=== PATIENT | male | born 1945 | race Caucasian/White ===

== ENCOUNTER 2017-02-07 09:05 | Inpatient (IN) | payer MEDICARE, BC ==
[~2017-02-07] VITALS: Ht 190.5 cm; Wt 126.6 kg
[~2017-02-07 09:05] MED LIST: ALFU10TA10 PO; ASPI81TA2 PO; ATOR40TA PO; BUPR-96 PO; CYAN500T4 PO; FINA5TAB11 PO; LISI10TA5 PO; METO-302 PO; SERT50TA PO; TIOT18CA3 IH
--- NOTE | 2017-02-07 09:13 | NUR ---
Presents self to ed due to chest pain, 06/09, sharp and non radiating x 8 days with sob x 2 days, hx of double bipass. Patient is aao3. Appears in no acute distress, respiration even and unlabored. Skin is warm to touch and non diaphoretic. Afebrile. Gowned patient and placed on tele monitor. VSs. will cont to monitor
--- NOTE | 2017-02-07 09:17 | NUR ---
laboratory technician at
[2017-02-07] MEDS ORDERED: ASPIRIN 325 MG TABLET ONE (09:18)
[2017-02-07 09:26] LABS: BASOPHILS % (AUTO) 0.1 % (0.0-2.0); EOSINOPHILS % (AUTO) 0.3 % (0.0-6.0); HEMATOCRIT 37 % (39-51); LYMPHOCYTES # (AUTO) 1.4 /CMM (0.8-4.8); MEAN CORPUSCULAR HEMOGLOBIN 26 PG (26.0-33.0); MEAN CORPUSCULAR HGB CONC 32 g/dl (31.0-36.0); MEAN CORPUSCULAR VOLUME 80 fL (80-96); MONOCYTES # (AUTO) 1.4 /CMM (0.1-1.30); MONOCYTES % (AUTO) 10.7 % (2.0-12.0); NEUTROPHILS # (AUTO) 9.8 /CMM (1.8-8.9); NEUTROPHILS % (AUTO) 77.9 % (43.0-81.0); PLATELET COUNT (AUTO) 284 /CMM (150-450); RED BLOOD CELL COUNT(AUTO) 4.67 MIL/uL (4.5-6.0); WHITE BLOOD COUNT (AUTO) 12.6 K/uL (4.3-11.0)
[2017-02-07] MEDS ORDERED: ASPIRIN 325 MG TABLET PO ONE (09:30)
[2017-02-07 09:38] LABS: CALCIUM, SERUM 10.1 mg/dL (8.5-10.1); CARBON DIOXIDE 27 mmol/L (21-32); CHLORIDE 101 mmol/L (98-107); CREATININE 1.1 mg/dL (0.6-1.3); GLUCOSE 113 mg/dL (74-106); POTASSIUM 4.3 mmol/L (3.5-5.1); SODIUM SERUM 135 mmol/L (136-145); UREA NITROGEN, BLOOD 17 mg/dL (7-18)
--- NOTE | 2017-02-07 09:39 | NUR ---
HOTEL LOBBY CONCIERGE AT BEDSIDE
[2017-02-07 09:45] LABS: TROPONIN I < 0.017 ng/mL (0.00-0.056)
[2017-02-07] MEDS ORDERED: BUPR-96 PO (09:45)
[2017-02-07] MEDS ORDERED: METO-304 PO (09:45)
[2017-02-07] MEDS ORDERED: ATOR80TA PO (09:45)
[2017-02-07] MEDS ORDERED: COLC0.6T69 PO (09:46)
[2017-02-07] MEDS ORDERED: NAPR500T3 PO (09:46)
[2017-02-07 09:48] LABS: PROTHROMBIN TIME 10.7 SECS (9.5-12.7)
--- NOTE | 2017-02-07 09:48 | NUR ---
Medicated patient as ordered
[2017-02-07 09:51] LABS: ALANINE AMINOTRANSFERASE 19 U/L (12-78); ALBUMIN 3.1 g/dL (3.4-5.0); ALKALINE PHOSPHATASE 104 U/L (46-116); ASPARTATE AMINOTRANSFERASE 20 U/L (15-37); B-TYPE NATRIURETIC PEPTIDE 924 PG/ML (0-125); BILIRUBIN,DIRECT 0.1 mg/dL (0.0-0.2); BILIRUBIN,TOTAL 0.7 mg/dL (0.2-1.0); TOTAL PROTEIN, SERUM 8.2 g/dL (6.4-8.2)
[2017-02-07] MEDS ORDERED: FUROSEMIDE 20 MG/2 ML VIAL ONE (09:58)
[2017-02-07] MEDS ORDERED: FUROSEMIDE 20 MG/2 ML VIAL IV ONE (10:00)
--- NOTE | 2017-02-07 10:00 | NUR ---
panel on-call paged
--- NOTE | 2017-02-07 10:00 | NUR ---
called [facility] [phone] its kan
--- NOTE | 2017-02-07 10:41 | NUR ---
REPORT GIVEN TO NEMO LOMAX FOR TELE RM [id number]
--- NOTE | 2017-02-07 10:52 | NUR ---
Patient transported. vss
--- NOTE | 2017-02-07 11:23 | NUR ---
TELE/RN ADMITTING NOTES PATIENT ADMITTED TO UNIT VIA GURNEY ACCOMPANIED BY ER NURSE. ALERT AND ORIENTED X4. VERBALIZED MILD SOB ON EXERTION. 02 VIA N/C @ 2 LPM ADMINISTERED WITH RELIEF. PATIENT WITH DIAGNOSIS OF CHEST PAIN WITH SOB. ALSO WITH SIGNIFICANT DIAGNOSIS OF HTN, COPD, CABG, BPH, SPINAL SURGERY B/L HERNIA. ROUTINE ADMISSION DONE: WITH IV ACCESS ON RIGHT AC G# 20. SKIN ASSESSMENT DONE , SKIN IS INTACT WITH DISCOLORATION ON BOTH FOREARMS, PHOTOS TAKEN AND FILED. PATIENT ON TELE-MONITORING WITH READING OF V-PACING AND HR OF 70-80 ON ADMISSION. CALL LIGHT WITHIN REACH, BED LOW AND LOCK FOR SAFETY. MD MADE AWARE OF ADMISSION AND PUT ORDERS IN. WILL CONTINUE TO ASSESS AND MONITOR PATIENT ACCORDINGLY.
[2017-02-07] MEDS: CYANOCOBALAMIN 500 MCG TABLET PO SCH ×2 (12:00→17:20)
[2017-02-07] MEDS ORDERED: COLCHICINE 0.6 MG TABLET PO PRN (12:00)
[2017-02-07] MEDS ORDERED: ONDANSETRON HCL/PF 4 MG/2 ML VIAL IVP PRN (12:30)
[2017-02-07] MEDS ORDERED: ACETAMINOPHEN 325 MG TABLET PO PRN (12:30)
[2017-02-07] MEDS: IPRATROPIUM NEB FS 0.5 MG/2.5 ML AMPUL.NEB NEB SCH ×3 (12:30→20:05)
[2017-02-07] MEDS ORDERED: Z GUARD REMEDY 2 OZ OINT TP PRN (12:30)
[2017-02-07] MEDS ORDERED: IPRATROPIUM NEB FS 0.5 MG/2.5 ML AMPUL.NEB NEB PRN (12:30)
[2017-02-07] MEDS: PANTOPRAZOLE 40 MG TABLET.DR PO SCH (12:44)
[2017-02-07] MEDS: BUMETANIDE INJ 0.25 MG/ML VIAL IV SCH (12:45)
[2017-02-07] MEDS: METOPROLOL SUCCINATE 50 MG TAB.SR.24H PO SCH (12:47)
--- NOTE | 2017-02-07 13:29 | NUR ---
EKG reported to nurse(Ignacio Lamb)
--- NOTE | 2017-02-07 13:31 | NUR ---
Was notified of respiratory treatment at this time.
--- NOTE | 2017-02-07 14:10 | NUR ---
RN NOTES PATIENT VISITED AND BROUGHT NON-FORMULARY HOME MEDS ALFUZOSIN HCL 10MG AND WELLBUTRIN 300MG. IT WAS COUNTED AND BROUGHT TO PHARMACY ACCEPTED BY
--- NOTE | 2017-02-07 14:22 | NUR ---
RN NOTES SPOKED TO PATIENT TO ASK HIS TO BRING HIS HOME MEDICATION ALFUZOSIN HCL 10MG WHEN SHE COMES TO VISIT HIM. HE SAID HE WILL. WILL FOLLOW-UP.
[2017-02-07] MEDS: HYDROCODONE/APAP 5/325MG 1 EACH TABLET PO PRN ×2 (15:31→20:57)
[2017-02-07 16:00] VITALS: BP 100/57
[2017-02-07] MEDS: BUPROPION XL 150 MG TAB.ER.24 PO SCH (17:20)
--- NOTE | 2017-02-07 19:30 | NUR ---
JANITOR CARETAKER INITIAL NOTE RECEIVED PT AWAKE AND ALERT ORIENTED X4, COMPLAINT OF PAIN ON BACK, CURRENTLY RECEIVING NORCO 5/325MG TO MANAGE PAIN, WILL PROVIDE TO PATIENT WHEN AVAILABLE, ASKED PT IF HE WOULD LIKE ANYTHING DIFFERENT FOR PAIN, HE WOULD LIKE TO CONTINUE WITH NORCO 5/325MG, PT IS CLEAN/DRY AND COMFORTABLE, SAFETY MEASURES WILL BE MAINTAINED AT ALL TIMES, WILL MONITOR AND ATTEND TO NEEDS HOURLY AND NEEDED
[2017-02-07 20:00] VITALS: BP 126/77
[2017-02-07] MEDS: FINASTERIDE (5 MG) 5 MG TABLET PO SCH (20:57)
[2017-02-07] MEDS: LISINOPRIL (10MG) 10 MG TABLET PO SCH (20:58)
[2017-02-07] MEDS ORDERED: ZOLPIDEM TARTRATE 5 MG TABLET PO PRN (22:00)
[2017-02-08] VITALS (7 sets, daily range): BP systolic 94–105; BP diastolic 55–66
[2017-02-08] MEDS: HYDROCODONE/APAP 5/325MG 1 EACH TABLET PO PRN ×3 (00:55→19:52)
[2017-02-08] MEDS: IPRATROPIUM NEB FS 0.5 MG/2.5 ML AMPUL.NEB NEB SCH ×4 (01:52→20:33)
--- NOTE | 2017-02-08 06:19 | NUR ---
DAMAGED FREIGHT INSPECTOR CLOSING NOTE PT REMAINED STABLE DURING RADIOLOGY NURSE, NO SIGNIFICANT CHANGES NOTED, PAIN SUCCESSFULLY TREATED WITH CURRENT PAIN MEDICATION, CLEAN/DRY AND COMFORTABLE, SAFETY MEASURES WERE KEPT IN PLACE AT ALL TIMES, NEEDS ANTICIPATED AND ATTENDED TO, WILL ENDORSE TO INCOMING NURSE FOR CONTINUITY OF CARE.
[2017-02-08] MEDS: PANTOPRAZOLE 40 MG TABLET.DR PO SCH (07:01)
--- NOTE | 2017-02-08 07:30 | NUR ---
PLANING MACHINE OPERATOR AM NOTE PT IN BED, AWAKE AND ALERT ORIENTED X4, ON 2L O2, ON AND OFF, NAD, NO SOB, RESPIRATION UNLABORED, TELEMETRY READS V PACING HR 78 , DENIES ANY CHEST PAIN OR DISCOMFORT AT THIS TIME, LEFT AC G20 IVHL FLUSHES WELL, SITE CLEAR, AMB WITH ASSIST, CARDIAC DIET, DISCUSSED PLAN OF CARE, VERBALIZED UNDERSTANDING, SAFETY MEASURES IN PLACE. CALL LIGHT WITHIN REACH, WILL CONT TO MONITOR.
[2017-02-08 07:51] LABS: BASOPHILS % (AUTO) 0.1 % (0.0-2.0); EOSINOPHILS % (AUTO) 0.4 % (0.0-6.0); HEMATOCRIT 34 % (39-51); HEMOGLOBIN 11.3 g/dL (13.5-17.5); LYMPHOCYTES # (AUTO) 1.5 /CMM (0.8-4.8); LYMPHOCYTES % (AUTO) 13.3 % (20.0-44.0); MEAN CORPUSCULAR HEMOGLOBIN 27 PG (26.0-33.0); MEAN CORPUSCULAR HGB CONC 33 g/dl (31.0-36.0); MEAN CORPUSCULAR VOLUME 81 fL (80-96); MONOCYTES # (AUTO) 1.3 /CMM (0.1-1.30); MONOCYTES % (AUTO) 11.9 % (2.0-12.0); NEUTROPHILS # (AUTO) 8.4 /CMM (1.8-8.9); NEUTROPHILS % (AUTO) 74.3 % (43.0-81.0); PLATELET COUNT (AUTO) 272 /CMM (150-450); RDW COEFFICIENT OF VARIATION 18.2 (11.5-15.0); WHITE BLOOD COUNT (AUTO) 11.3 K/uL (4.3-11.0)
[2017-02-08 07:58] LABS: ALBUMIN 2.7 g/dL (3.4-5.0); BILIRUBIN,TOTAL 0.6 mg/dL (0.2-1.0); CALCIUM, SERUM 9.4 mg/dL (8.5-10.1); MAGNESIUM 2.2 mg/dL (1.8-2.4); PHOSPHORUS 3.6 mg/dL (2.5-4.9); POTASSIUM 4.4 mmol/L (3.5-5.1); TOTAL PROTEIN, SERUM 7.4 g/dL (6.4-8.2)
[2017-02-08] MEDS: ASPIRIN 81 MG TAB.CHEW PO SCH (08:31)
[2017-02-08] MEDS: BUPROPION XL 150 MG TAB.ER.24 PO SCH ×2 (08:31→16:14)
[2017-02-08] MEDS: CYANOCOBALAMIN 500 MCG TABLET PO SCH ×2 (08:31→16:14)
[2017-02-08] MEDS: METOPROLOL SUCCINATE 50 MG TAB.SR.24H PO SCH (08:31)
[2017-02-08] MEDS: BUMETANIDE INJ 0.25 MG/ML VIAL IV SCH (08:32)
--- NOTE | 2017-02-08 09:30 | NUR ---
COOLING TOWER TECHNICIAN NOTES ADMINISTERED DUE MEDS.
[2017-02-08] MEDS: NAPROXEN 500 MG TABLET PO PRN (10:49)
[2017-02-08] MEDS ORDERED: AZITHROMYCIN 250 MG TABLET PO ONE (14:00)
[2017-02-08] MEDS: LIDOCAINE 5% (PATCH) 1 EA PATCH TP SCH (16:15)
[2017-02-08] MEDS: ALFUZOSIN HCL 10 MG PO SCH ×2 (17:49→21:16)
--- NOTE | 2017-02-08 18:29 | NUR ---
MS RN CLOSING NOTES PT RESTING IN BED, AWAKE AND ALERT ORIENTED X4, FAMILY AT BEDSIDE, ON 2L O2, ON AND OFF, NAD, NO SOB, RESPIRATION UNLABORED, DENIES ANY CHEST PAIN OR DISCOMFORT AT THIS TIME, LEFT AC G20 IVHL FLUSHES WELL, SITE CLEAR, AMB WITH ASSIST, CARDIAC DIET, ALL NEEDS MET AT THIS TIME, SAFETY MEASURES IN PLACE. CALL LIGHT WITHIN REACH, WILL ENDORSE TO NEXT SHIFT FOR SURYA.
--- NOTE | 2017-02-08 19:30 | NUR ---
MS RN INITIAL NOTE RECEIVED PT AWAKE AND ALERT, ORIENTED X4, AMBULATING WITH ASSISTANCE, PAIN LEVEL REPORTED OF 8/10 ON HIS LOWER BACK DURING PHYSICAL ASSESSMENT, WILL PROVIDE MEDICATION ORDERED, RESPIRATIONS ARE EVEN AND UNLABORED, PT IS COOPERATIVE WITH CARE, CLEAN/DRY AND COMFORTABLE, SAFETY MEASURES WILL BE MAINTAINED AT ALL TIMES, NEEDS WILL BE ANTICIPATED AND ATTENDED TO DURING HOURLY ROUNDS AND NEEDED.
[2017-02-08] MEDS: LISINOPRIL (10MG) 10 MG TABLET PO SCH (21:09)
[2017-02-08] MEDS: FINASTERIDE (5 MG) 5 MG TABLET PO SCH (21:16)
[2017-02-08] MEDS: ATORVASTATIN 40 MG TABLET PO SCH (21:16)
[2017-02-09] MEDS: HYDROCODONE/APAP 5/325MG 1 EACH TABLET PO PRN ×3 (00:11→21:32)
[2017-02-09] MEDS: IPRATROPIUM NEB FS 0.5 MG/2.5 ML AMPUL.NEB NEB SCH ×4 (01:02→20:08)
--- NOTE | 2017-02-09 06:08 | NUR ---
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
[2017-02-09] MEDS: PANTOPRAZOLE 40 MG TABLET.DR PO SCH (06:37)
--- NOTE | 2017-02-09 07:30 | NUR ---
MS RN AM NOTE PT IN BED, AWAKE AND ALERT ORIENTED X4, ON 2L O2, ON AND OFF, NAD, NO SOB, RESPIRATION UNLABORED, DENIES ANY CHEST PAIN, C/O LOWER BACK PAIN 02/07, WILL CONTINUE WITH PAIN MANAGEMENT ORDERED, LEFT AC G20 IVHL FLUSHES WELL, SITE CLEAR, AMB WITH ASSIST, CARDIAC DIET, DISCUSSED PLAN OF CARE, VERBALIZED UNDERSTANDING, SAFETY MEASURES IN PLACE. CALL LIGHT WITHIN REACH, WILL CONT TO MONITOR.
[2017-02-09 08:00] VITALS: BP 99/59
[2017-02-09] MEDS: AZITHROMYCIN 250 MG TABLET PO SCH (08:58)
[2017-02-09] MEDS: ASPIRIN 81 MG TAB.CHEW PO SCH (08:58)
[2017-02-09] MEDS: CYANOCOBALAMIN 500 MCG TABLET PO SCH ×2 (08:58→16:19)
[2017-02-09] MEDS: METOPROLOL SUCCINATE 50 MG TAB.SR.24H PO SCH (08:59)
[2017-02-09] MEDS: BUPROPION XL 150 MG TAB.ER.24 PO SCH (08:59)
[2017-02-09] MEDS: BUMETANIDE INJ 0.25 MG/ML VIAL IV SCH (08:59)
--- NOTE | 2017-02-09 09:30 | NUR ---
MS RN NOTES ADMINISTERED DUE MEDS.
[2017-02-09] MEDS: NAPROXEN 500 MG TABLET PO PRN (09:38)
--- NOTE | 2017-02-09 10:26 | NUR ---
MS RN NOTES SEEN BY PT EARLIER. OOB WALKING WITH WALKER.
[2017-02-09] MEDS: LIDOCAINE 5% (PATCH) 1 EA PATCH TP SCH (15:27)
[2017-02-09] MEDS: MAGNESIUM HYDROXIDE 30 ML UDC PO PRN ×2 (15:35→20:34)
[2017-02-09 16:00] VITALS: BP 112/66
[2017-02-09 18:01] VITALS: BP 112/66
--- NOTE | 2017-02-09 19:23 | NUR ---
MS RN CLOSING NOTES PT RESTING IN BED, AWAKE AND ALERT ORIENTED X4, ON 2L O2, ON AND OFF, NAD, NO SOB, RESPIRATION UNLABORED, DENIES ANY CHEST PAIN, PT C/O NAUSEA AND WAS GIVEN ZOFRAN 4 MG IV A WHILE AGO. LEFT AC G20 IVHL FLUSHES WELL, SITE CLEAR, AMB WITH ASSIST, CARDIAC DIET, ALL NEEDS MET AT THIS TIME, SAFETY MEASURES IN PLACE. CALL LIGHT WITHIN REACH, WILL ENDORSE TO NEXT SHIFT FOR SURYA.
--- NOTE | 2017-02-09 19:30 | NUR ---
MS RN OPENING NOTES: RECEIVED PATIENT IN BED AWAKE AND LYING DOWN. A/OX4. L AC 20G IV PATENT AND INTACT. PT ON NC 2LPM AND TOLERATED WELL. PT KEPT CLEAN, DRY, AND COMFORTABLE. CALL LIGHT WITHIN PATIENT REACH. BED IN LOCKED, LOWEST POSITION, AND SIDE RAILS UP X2. WILL CONTINUE TO MONITOR.
[2017-02-09 20:00] VITALS: BP 100/62
--- NOTE | 2017-02-09 20:54 | NUR ---
MS RN NOTES: PATIENT REQUESTED FOR LAXATIVE FOR CONSTIPATION. MILK OF MAGNESIA WAS GIVEN TO PT. WILL CONTINUE TO MONITOR.
[2017-02-09] MEDS: ATORVASTATIN 40 MG TABLET PO SCH (21:30)
[2017-02-09] MEDS: FINASTERIDE (5 MG) 5 MG TABLET PO SCH (21:30)
[2017-02-09] MEDS: ALFUZOSIN HCL 10 MG PO SCH (21:30)
[2017-02-09] MEDS: LISINOPRIL (10MG) 10 MG TABLET PO SCH (21:31)
--- NOTE | 2017-02-09 21:32 | NUR ---
MS RN NOTES: PATIENT COMPLAINED OF LOWER BACK PAIN. PATIENT GOT NORCO 5/325MG PO. VITAL SIGNS STABLE.
[2017-02-10] MEDS: IPRATROPIUM NEB FS 0.5 MG/2.5 ML AMPUL.NEB NEB SCH ×4 (00:59→20:08)
[2017-02-10] MEDS: HYDROCODONE/APAP 5/325MG 1 EACH TABLET PO PRN ×2 (02:58→15:12)
--- NOTE | 2017-02-10 02:58 | NUR ---
MS RN NOTES: PT RECEIVED NORCO 5/325MG. PT COMPLAINED OF 7/10 LOWER BACK PAIN. WILL CONTINUE TO MONITOR.
[2017-02-10] MEDS: NAPROXEN 500 MG TABLET PO PRN ×3 (06:27→22:54)
[2017-02-10] MEDS: PANTOPRAZOLE 40 MG TABLET.DR PO SCH (06:27)
--- NOTE | 2017-02-10 06:47 | NUR ---
MS RN CLOSING NOTES: PT A/OX4. PT ON NC 2LPM AND TOLERATED WELL. PT IS SITTING DOWN IN CHAIR. PT RECEIVED NAPROXEN AT 0627. COMPLAINED OF LOWER BACK PAIN 4-5/10. ALL NEEDS WERE ATTENDED TO. CALL LIGHT WITHIN PT REACH. BED IN LOCKED, LOWEST POSITION, AND SIDE RAILS X2 UP. L AC#20 IV PATENT AND INTACT. PT KEPT CLEAN, DRY, AND COMFORTABLE. WILL ENDORSE TO DAY SHIFT NURSE.
[2017-02-10 08:00] VITALS: BP 71/43
--- NOTE | 2017-02-10 08:45 | NUR ---
RN AM NOTES RECEIVED PATIENT IN STABLE CONDITION, TALKING, ALERT AND ORIENTED X4. COMPLAINTS OF SOB AND INABILITY TO AMBULATE TO BATHROOM WITHOUT ASSISTANCE. BP LOW AT 71/43, P 91; MD AWARE. BP INCREASED TO 80/64 P59, TAKEN MANUALLY, MD AWARE. WILL CONTINUE TO MONITOR. HOLDING BP MEDS THIS MORNING.
[2017-02-10] MEDS: METOPROLOL SUCCINATE 50 MG TAB.SR.24H PO SCH (08:57)
[2017-02-10] MEDS: ASPIRIN 81 MG TAB.CHEW PO SCH (09:42)
[2017-02-10] MEDS: BUPROPION XL 150 MG TAB.ER.24 PO SCH (09:42)
[2017-02-10] MEDS: CYANOCOBALAMIN 500 MCG TABLET PO SCH ×2 (09:42→16:25)
[2017-02-10] MEDS: AZITHROMYCIN 250 MG TABLET PO SCH (09:42)
[2017-02-10] MEDS ORDERED: BISACODYL SUPP (10 MG) 10 MG/SUPP.RECT SUPP.RECT RC PRN (14:00)
[2017-02-10] MEDS ORDERED: POLYETHYLENE GLYCOL 3350 17 GM POWD.PACK PO PRN (14:00)
--- NOTE | 2017-02-10 14:43 | NUR ---
AT BEDSIDE REQUESTING TO SPEAK TO MD. LEFT MESSAGE FOR MD TO CALL HER THIS AFTERNOON AT . HE CAN ALSO REACH HER HERE AT PATIENT'S BEDSIDE WITHIN THE HOUR. LEFT MESSAGE WITH [employer]. AWARE. WAITING FOR RESPONSE.
[2017-02-10] MEDS: LIDOCAINE 5% (PATCH) 1 EA PATCH TP SCH (15:30)
[2017-02-10 16:00] VITALS: BP 91/51
[2017-02-10] MEDS: MAG HYDROX/AL HYDROX/SIMETH 30 ML UDC PO PRN ×2 (16:20→21:34)
--- NOTE | 2017-02-10 19:03 | NUR ---
PATIENT RESTING COMFORTABLY IN BED, AWAKE, ALERT AND ORIENTED. SMALL BOWEL MOVEMENT X2, PLEASE CONTINUE WITH BOWEL REGIMEN ORDERED, WILL ENDORSE TO NEXT SHIFT. PACEMAKER RESET TODAY, TO FOLLOW UP WITH NUTRITION FACULTY MEMBER IN MORNING RE: DISCHARGE. TO ASK MD TO D/C LIDOCAINE PATCH PT. NO LONGER WANTS TO TAKE IT. WILL ENDORSE TO NEXT SHIFT.
[2017-02-10 20:00] VITALS: BP 104/62
--- NOTE | 2017-02-10 20:41 | NUR ---
MS RN OPENING NOTES: RECEIVED PATIENT AWAKE. PT A/O X4. PT WAS UP AND ASSISTED TO BATHROOM. IV ON L AC #20 SALINE LOCK. KEPT CLEAN, DRY, AND COMFORTABLE. BED IN LOWEST, LOCKED POSITION, AND SIDE RAILS X2 UP. WILL CONTINUE TO MONITOR PT.
[2017-02-10] MEDS: ATORVASTATIN 40 MG TABLET PO SCH (21:34)
[2017-02-10] MEDS: FINASTERIDE (5 MG) 5 MG TABLET PO SCH (21:34)
[2017-02-10] MEDS: ALFUZOSIN HCL 10 MG PO SCH (21:35)
[2017-02-10] MEDS: LISINOPRIL (10MG) 10 MG TABLET PO SCH (21:35)
--- NOTE | 2017-02-10 21:48 | NUR ---
MR RN NOTES: PATIENT COMPLAINED OF BELCHING AND BLOATING. PATIENT WAS GIVEN MAALOX 30ML. PT'S BP WAS 89/59 HR77. PRINVIL 10MG WAS HELD. WILL CONTINUE TO MONITOR PT.
[2017-02-11] MEDS: IPRATROPIUM NEB FS 0.5 MG/2.5 ML AMPUL.NEB NEB SCH ×3 (01:21→13:17)
[2017-02-11 05:47] VITALS: BP 104/62
--- NOTE | 2017-02-11 06:29 | NUR ---
MS RN CLOSING NOTES: PATIENT A/OX4. PT IN BED LAYING DOWN AND REPORTED HE SLEPT BETTER. PT'S URINAL WAS EMPTIED OUT AT 400ML AND PT REPORTED HE HAD 3 BOWEL MOVEMENTS. PT KEPT IN LOCKED, LOWEST POSITION, AND SIDE RAILS X2 UP. PT'S CALL LIGHT WITHIN PT REACH. ALL NEEDS WERE ATTENDED TO. PT KEPT CLEAN, DRY, AND COMFORTABLE. PT HAS IV ON L AC #22. WILL ENDORSE TO DAY SHIFT NURSE.
--- NOTE | 2017-02-11 07:58 | NUR ---
RN AM NOTES RECEIVED PATIENT UP IN CHAIR AWAKE, TALKING ON THE PHONE TO . ALERT AND ORIENTED X 4. PAIN RATED 4/10. WILL ADMINISTER PAIN MEDICATION ORDERED. ABLE TO TRANSFER WITH ASSISTANCE FROM BED TO CHAIR. WAITING FOR BREAKFAST. WILL CONTINUE TO MONITOR.
[2017-02-11 08:00] VITALS: BP 92/55
[2017-02-11] MEDS: CYANOCOBALAMIN 500 MCG TABLET PO SCH ×2 (08:38→17:26)
[2017-02-11] MEDS: NAPROXEN 500 MG TABLET PO PRN (08:38)
[2017-02-11] MEDS: ASPIRIN 81 MG TAB.CHEW PO SCH (08:38)
[2017-02-11] MEDS: AZITHROMYCIN 250 MG TABLET PO SCH (08:38)
[2017-02-11] MEDS: PANTOPRAZOLE 40 MG TABLET.DR PO SCH (08:39)
[2017-02-11] MEDS: METOPROLOL SUCCINATE 50 MG TAB.SR.24H PO SCH (08:39)
[2017-02-11] MEDS: BUPROPION XL 150 MG TAB.ER.24 PO SCH (08:39)
--- NOTE | 2017-02-11 13:18 | NUR ---
CALLED TO BEDSIDE FOR COMPLAINTS OF RIGHT SHOULDER PAIN RADIATING DOWN TO RIGHT SIDE OF RIBCAGE. RELIEVED WITH REPOSITIONING. REQUESTED TO BE TESTED TO RULE OUT PLEURISY, CALLED MD AND MD HAS ALREADY TESTED FOR THAT AND PATIENT IS RECEIVING MEDS FOR IT. FOLLOWED UP WITH CASE MANAGEMENT FOR DISCHARGE TO SNF OR [facility]. ORDER FOR EVALUATION PUT IN THIS MORNING. PT VERBALIZED UNDERSTANDING. WILL CONTINUE TO MONITOR.
[2017-02-11] MEDS: LIDOCAINE 5% (PATCH) 1 EA PATCH TP SCH (15:30)
[2017-02-11 16:00] VITALS: BP 94/62
--- NOTE | 2017-02-11 18:40 | NUR ---
RN PM NOTES PATIENT TO DISCHARGE TO [facility] AT 7:30 PM. ALL NEEDS MET, DISCHARGE PAPERWORK SIGNED. WILL ENDORSE TO NEXT SHIFT TO COMPLETE DISCHARGE NOTE AND COMPLETION OF CAREPLANS. PATIENT IN STABLE CONDITION. NO SOB, DISTRESS OR PAIN NOTED.
--- NOTE | 2017-02-11 20:24 | NUR ---
MS/RN NOTES RECEIVED PT. LYING IN BED. BREATHING EVEN AND UNLABORED ON ROOM AIR. NO SOB, RESPIRATORY DISTRESS OR COMPLAINTS OF PAIN NOTED AT THIS TIME. PER DAYSHIFT RN [place] PT. IS TO BE DISCHARGED TODAY TO [facility]. PER DAYSHIFT RN REPORT WAS GIVEN TO ERENDIRA AT [facility], PT. EXITCARE IS COMPLETE, SIGNED COPY PROVIDED TO PATIENT, ORIGINAL PLACED IN PT. CHART. PICTURES TAKEN AND PLACED IN CHART. PT. VITAL SIGNS STABLE. BELONGINGS LIST COMPLETED, SIGNED AND PLACED IN CHART. PT. CARE PLANS COMPLETED. PT. IV REMOVED. NO BLEEDING OR S/S OF INFECTION NOTED AT IV SITE. PT. LEFT THE FLOOR VIA GURNEY ACCOMPANIED BY PULMONARY FUNCTION TECHNICIAN AT 2023.
== END 2017-02-11 20:20 | DRG 302 ==
LOC: EDUNIT# 09:05 → ER 09:06 → TELE 10:22 → MED 02-08 14:38
PROVIDERS: ADMIT Internal Medicine; ATTEND Internal Medicine
DX: I25.110 Atherosclerotic heart disease of native coronary artery with unstable angina pectoris (principal); I50.33 Acute on chronic diastolic (congestive) heart failure; J44.0 Chronic obstructive pulmonary disease with (acute) lower respiratory infection; I11.0 Hypertensive heart disease with heart failure; E78.5 Hyperlipidemia, unspecified; N40.0 Benign prostatic hyperplasia without lower urinary tract symptoms; Z95.1 Presence of aortocoronary bypass graft; J20.9 Acute bronchitis, unspecified; I27.2 Other secondary pulmonary hypertension; G47.33 Obstructive sleep apnea (adult) (pediatric); F41.0 Panic disorder [episodic paroxysmal anxiety]; I25.5 Ischemic cardiomyopathy; Z96.652 Presence of left artificial knee joint; Z95.810 Presence of automatic (implantable) cardiac defibrillator; Z87.891 Personal history of nicotine dependence; I71.4 Abdominal aortic aneurysm, without rupture; Z79.82 Long term (current) use of aspirin
CPT/HCPCS: 36415; 71010-TC; 80048-TC; 80053-TC; 80061-TC; 80076-TC; 83735-TC; 83880; 84100-TC; 84484-TC; 85025-TC; 85730-TC; 87081-TC; 93307-TC; 94799-TC; 97001-TC; 97110-TC; 97116-TC; 97530-TC; A4606; J1940; J2405; J3490; Z7610